=== PATIENT | female | born 1930 | race Caucasian/White ===

== ENCOUNTER 2018-12-03 09:32 | Inpatient (IN) | payer MEDICARE ==
[~2018-12-03] VITALS: Ht 160 cm; Wt 77.1 kg
--- NOTE | ~2018-12-03 | DS ---
[place], [place] DISCHARGE SUMMARY NAME: LORI LOVELL UNIT #: [id number] ROOM: 314 DOCTOR: POLINA QUIÑONEZ MD BIRTHDATE: [birth year] DOS: 12/07/2018 CHIEF COMPLAINT: "I have been just so depressed, I am not happy where I am at." HISTORY OF PRESENT ILLNESS: This is an 88-year-old white female who resides at [facility] independent living. The patient has been increasingly depressed and despondent. She reports that she is not sleeping or eating well and has not been necessarily taking care of her ADLs. She is upset because she could not be with her who resides in another part of the facility. She feels that people are being deliberately mean to her. She is admitted now to rule out organic factors, to stabilize on medication, returning to the least restrictive environment when psychiatrically stable. SUMMARY OF HOSPITAL COURSE: The patient was admitted to the unit where routine screening examinations revealed her to have a low vitamin D level of 26.8, so vitamin D 5000 IUs daily was started. The patient was also started on Remeron 15 mg at bedtime and Risperdal 0.5 mg at bedtime to combat the depression with paranoia. She tolerated this well. Ultimately, the Remeron dose was increased from 15 to 30 mg because she was having some residual somnolence. With this combination of medication, she slept well. Her appetite improved. She expressed willingness and a readiness to return back to her home environment. She convincingly denied suicidal thoughts, homicidal thoughts or any side effects from the medicine. The patient was discharged then back to [facility]. MENTAL STATUS AT DISCHARGE: The patient is alert and oriented with time gaps. Mood does seem to be euthymic. Affect is appropriate. There is no tiburcio, hypomania or psychosis. Short, intermediate, and long-term memory is intact. FINAL DIAGNOSIS: Major depression, recurrent with psychotic features. PLAN: Her prescriptions have been printed, signed and sent with her. We will follow as the treating psychiatric practice upon her readmission to [facility]. At the time of discharge, she was medically and psychiatrically stable. [place], [place] DISCHARGE SUMMARY NAME: LORI LOVELL UNIT #: [id number] ROOM: 314 DOCTOR: POLINA QUIÑONEZ MD BIRTHDATE: [birth year] POLINA QUIÑONEZ MD CM:[place] 0 POLINA QUIÑONEZ MD 12/07/18 09 interface
--- NOTE | ~2018-12-03 | WRIGHTHP ---
[place], [place] PATIENT HISTORY AND PHYSICAL EXAM NAME: LORI LOVELL UNIT #: [id number] ROOM: 314 DOCTOR: POLINA QUIÑONEZ MD BIRTHDATE: [birth year] DOS: 12/04/2018 CHIEF COMPLAINT: "I have just been so depressed, I am not happy where I am at." HISTORY OF PRESENT ILLNESS: This is an 88-year-old white female who resides at [facility]. The patient has been increasingly depressed and despondent. She reports that she is not sleeping or eating well and has not necessarily been taking care of herself. She is upset because she cannot be with her who resides in another part of [facility] and feels that staff there are deliberately mean to her, because of her decompensation, it was felt that an inpatient stabilization was warranted. PAST MEDICAL HISTORY: Remarkable for GERD, glaucoma, osteoarthritis, peripheral vascular disease, and major depression, recurrent. SOCIAL HISTORY: She is a nonsmoker, does not use illicit drugs or drink alcohol. ALLERGIES: SHE LISTS ALLERGIES TO PREDNISONE AND ALBUTEROL. STRENGTHS: Good verbal skills, ambulatory. WEAKNESSES: Poor coping skills. MENTAL STATUS: She is alert and oriented with mild time gaps. Mood is overwhelmingly depressed. She is flat and blunted. She voices multiple neurovegetative symptoms. There is no tiburcio, hypomania. There is some mild paranoia, some of this may be rooted in fact, memory has some gaps. DIAGNOSIS: Major depression, recurrent with psychotic features. PLAN: I have already started her on low dose Risperdal and Remeron. Routine screening examinations reveal a vitamin D level that is low at 26.8, so I will start vitamin D 5000 IUs daily. We will engage in individual and pabon milieu activity, returning to the least restrictive environment when psychiatrically stable. [place], [place] PATIENT HISTORY AND PHYSICAL EXAM NAME: LORI LOVELL UNIT #: [id number] ROOM: 314 DOCTOR: POLINA QUIÑONEZ MD BIRTHDATE: [birth year] POLINA QUIÑONEZ MD CM:HISPHYS:PATIENT HISTORY AND PHYSICAL EXAMINATION 1002 POLINA QUIÑONEZ MD 12/04/18 1009 interface
--- NOTE | ~2018-12-03 | PR ---
[place], [place] PROGRESS NOTE NAME: LORI LOVELL UNIT #: [id number] ROOM: 314 DOCTOR: BELKYS GARCÍA CNP BIRTHDATE: [birth year] DOS: 12/05/2018 CHIEF COMPLAINT: "I would not be here for my son would have just taken me to my home." SUMMARY OF THE VISIT: The patient was interviewed as she sat finishing her breakfast. She did engage readily in conversation with me. The patient reports that she slept well last night and her appetite has been good. She reports that she knows me, but cannot remember my name. I have seen the patient in the past at her assisted living facility in [place]. Staff reports that the patient has been medication compliant; however, she continues to isolate and she can be very demanding of staff at times. MENTAL STATUS EXAMINATION: The patient is alert and oriented to person, place and time. She was pleasant and cooperative with me. No tiburcio or hypomania noted. No delusions or paranoia noted. No psychotic symptoms noted. No auditory or visual hallucinations noted. The patient's mood was calm. Her affect was congruent with mood. No irritability, agitation or aggression noted at this time. PLAN: I will continue the patient's medications as prescribed. We will continue to monitor for effectiveness and side effects. If the patient continues to tolerate Remeron, we will probably plan to increase this to maximize efficacy and we will continue to encourage the patient to engage in individual and pabon milieu activity. Continue fall and safety precautions. Plan is to return the patient to the least restrictive environment when she is considered psychiatrically stable. Belkys García CNP CM:PNTRANS [phone] BELKYS GARCÍA CNP 12/05/18 2351 interface
--- NOTE | ~2018-12-03 | PR ---
[place], [place] PROGRESS NOTE NAME: LORI LOVELL UNIT #: [id number] ROOM: 314 DOCTOR: BELKYS GARCÍA CNP BIRTHDATE: [birth year] DOS: 12/06/2018 CHIEF COMPLAINT: "My back hurts so bad." SUMMARY OF THE VISIT: The patient was interviewed as she lies in her bed in her room. She did engage readily in conversation with me. She reports that she did sleep well last night. She reports that her appetite is good. She denies feeling anxious or irritable. She just reports that she needs something for her back pain that she has scoliosis and that her back always hurts her. Staff reports that the patient has been compliant with her medications. She does continue to be somewhat irritable and she does continue to isolate herself for most of the day in her room. MENTAL STATUS EXAMINATION: The patient is alert and oriented to person, place and time. She was pleasant and cooperative with me. No tiburcio or hypomania noted. No delusions or paranoia noted. No psychotic symptoms noted. No auditory or visual hallucinations noted. The patient's mood was calm. Her affect is congruent with mood. No agitation, aggression or irritability noted at this time. PLAN: I am going to increase the patient's Remeron to 30 mg at bedtime to combat depression symptoms. I will monitor for effectiveness of medication as well as any side effects. At this time, the patient does appear to be tolerating the Remeron 15 mg. I continue to encourage the patient to engage in individual and pabon milieu activity. Continue fall and safety precautions. Plan to return the patient to the least restrictive environment when she is considered psychiatrically stable. Belkys García CNP CM:PNTRANS [phone] BELKYS GARCÍA CNP 12/07/18 0412 interface
[2018-12-03] MEDS ORDERED: ZOLOFT100 MG PO (09:33)
[2018-12-03] MEDS ORDERED: BENGAY GREASELE57 GM T (09:34)
[2018-12-03] MEDS ORDERED: DORZOLAMIDE HYD10 M1 IO (09:35)
[2018-12-03] MEDS ORDERED: LASIX20 MG PO (09:36)
[2018-12-03] MEDS ORDERED: LATANOPROST 0.7.5 ML IO (09:37)
[2018-12-03] MEDS ORDERED: ONE-DAILY MULT1 EAC1 PO (09:37)
[2018-12-03] MEDS ORDERED: PROBIOTIC250 MG PO (09:38)
[2018-12-03] MEDS ORDERED: POTASSIUM CHLO10 MEQ PO (09:38)
[2018-12-03] MEDS ORDERED: VITAMIN B121000 MC1 PO (09:40)
[2018-12-03] MEDS ORDERED: PRESERVISION L1 EACH PO (09:41)
[2018-12-03] MEDS ORDERED: GAS-X EXTRA ST125 M1 PO (09:42)
[2018-12-03] MEDS ORDERED: ADVIL200 M1 PO (09:43)
[2018-12-03] MEDS ORDERED: ALLEGRA-D 24 H1 EACH PO (09:44)
[2018-12-03] MEDS ORDERED: ARTIFICIAL TEAR15 M1 OPH (09:45)
[2018-12-03] MEDS ORDERED: MUCINEX DM 30/61 TAB PO (09:47)
[2018-12-03] MEDS ORDERED: TUMS200 MG PO (09:49)
[2018-12-03 11:32] VITALS: BP 140/57
[2018-12-03 11:49] VITALS: BP 140/57
--- NOTE | 2018-12-03 12:13 | NUR ---
SPOKE WITH DR. GARNETT AT [phone] RE: MEDICAL MANAGEMENT CONSULT NEEDED, PER DR. GONZALEZ CONSULT UNDER HIMSELF.
--- NOTE | 2018-12-03 12:19 | NUR ---
LORI LOVELL a 88 year old F admitted via wheel chair from the [facility] as a voluntary admission. Arrived on unit at 1127 . ALLERGIES: ALBUTEROL AND PREDNISONE Vital signs are: 97.7-93-17 125/86. The client signed the following forms with stated understanding: Authorization For The Release of Medical Information, Clothing List, Consent to Voluntary Admission and Hospitalization, Consent and Release Forms/Receipt of Rights, Acknowledgement of Advance Directive Information, Behavioral Health Consent Form, and Informed Consent of Medications. Admitted under the services of Dr. OLAMIDE JUÁREZ,[facility]. A search was conducted and hazardous articles were removed. Client was oriented to the unit. JATINDER RAPP PT ALERT TO PERSON, PLACE AND TIME. PT CALM, PLEASANT WITH STAFF AND PEERS. NO HALLUCINATIONS OR DELUSIONS NOTED. PT DENIES ANY SUICIDAL THOUGHTS. PT REPORTS USING A ROLLATOR WALKER AT THE A.L., GAIT UNSTEADY, PT UTILIZAING A WHEELCHAIR AT THIS TIME, ORDER PLACED FOR PT/OT EVAL. PT CONTINENT OF BOWEL AND BLADDER.
--- NOTE | 2018-12-03 15:45 | NUR ---
PM GROUP/MOVIE AND CRAFTS PT WAS PRESENT AT THE START OF GROUP AND I HAD NOT HAD A CHANCE TO MEET PT OR ASSESS PT AND SET GOALS. PT WAS ASKED IF SHE WANTED TO JOIN AN ACTIVITY AND STATED, "I ONLY LIKE BINGO" PT SHORTLY ASKED TO BE TAKEN TO HER ROOM TO REST. MENTAL HEALTH WORKER TOOK HER TO HER ROOM
[2018-12-03 20:06] VITALS: BP 135/61
--- NOTE | 2018-12-04 02:22 | NUR ---
24 HR chart check completed.
--- NOTE | 2018-12-04 05:23 | NUR ---
Patient slept approx. 8 hours throughout shift. Q 15 minute safety checks continued and maintained.
[2018-12-04 06:40] LABS: BASO # 0.1 10*3/uL (0.0-0.1); BASO % 1.4 % (0.0-1.0); EOS # 0.3 10*3/uL (0.0-0.4); EOS % 5.3 % (1.0-4.0); HEMATOCRIT 41.3 % (37.0-47.0); HEMOGLOBIN 13.1 g/dl (12.0-16.0); LYMPH # 1.9 10*3/uL (1.3-4.4); LYMPH % 37.6 % (27.0-41.0); MEAN CELL VOLUME 98.3 fl (81.0-99.0); MEAN CORPUSCULAR HGB 31.2 pg (27.0-31.0); MEAN CORPUSCULAR HGB CONC 31.7 g/dl (33.0-37.0); MEAN PLATELET VOLUME 11.7 fl (9.6-12.3); MONO # 0.6 10*3/uL (0.1-1.0); NEUT # 2.1 10*3/uL (2.3-7.9); NEUT % 42.5 % (47.0-73.0); PLATELET COUNT AUTOMATED 131 10*3/uL (130-400); RED CELL DISTRI WIDTH 13.2 % (0-14.5); WHITE BLOOD COUNT 4.9 10*3/uL (4.8-10.8)
[2018-12-04 07:22] LABS: CHLORIDE 114 mmol/L (98-107); POTASSIUM 3.4 mmol/L (3.5-5.1); SODIUM 147 mmol/L (136-145)
[2018-12-04 07:41] LABS: ALBUMIN 3.3 gm/dl (3.1-4.5); ALKALINE PHOSPHATASE 98 U/L (45-117); BUN 14 mg/dl (7-24); CHOLESTEROL 212 mg/dL (<200); CREATININE 0.71 mg/dL (0.55-1.02); HDL CHOLESTEROL 49 mg/dl (40-60); LDL CHOLESTEROL 138 mg/dL (9-159); SGOT/AST 14 IU/L (3-35); SGPT/ALT 13 U/L (12-78); TOTAL PROTEIN 6.4 gm/dL (6.4-8.2); TRIGLYCERIDES 127 mg/dl (<150); VLDL CHOLESTEROL 25 mg/dL (6-40)
[2018-12-04 07:59] LABS: VITAMIN D, 25-HYDROXY 26.8 ng/mL (30-100)
[2018-12-04 08:00] VITALS: BP 143/68
--- NOTE | 2018-12-04 08:30 | NUR ---
Treatment Plan meeting with Dr. Panchal, RN, AT, and Rebeamer. plan for discharge Next week. Pt. came to [facility] from [facility]. Will reach out to facility to discuss discharge Planning.
--- NOTE | 2018-12-04 10:40 | NUR ---
DR. LUNA ON FLOOR TO ASSESS PT, UPDATE PROVIDED.
--- NOTE | 2018-12-04 12:17 | NUR ---
Call placed to Lorene of the [facility] where patient is a resident and will return at discharge. Clinical Updates faxed to Facility.
--- NOTE | 2018-12-04 12:45 | NUR ---
Shift chart check completed.
--- NOTE | 2018-12-04 13:54 | NUR ---
PHYSICAL THERAPY Physical therapy evaluation completed. Full details and evaluation to follow. Low complexity skilled PT evaluation performed (10236). PT will work on strength, transfers, gait, safety, and balance per POC. Recommend return to [facility] independent living upon discharge and receive home health PT services if goals not met.Thank you Mely Jimenez, SPT Nilda Ng,PT,DPT
--- NOTE | 2018-12-04 14:37 | NUR ---
P- ST/LT MEMORY DEFICITS NOTED. MOOD LABILE. ISOLATIVE TO ROOM. I- REORIENT WITH CONFUSION. 1:1 INTERACTION WITH EMOTIONAL SUPPORT AND VENTILATION OF FEELINGS PROVIDED. ENCOURAGE INTERACTION WITH PEERS AND STAFF. ENCOURAGE TO ATTEND/PARTICIPATE IN GORUP THERAPIES FOR EMOTIONAL SUPPORT AND VENTILATION OF FEELINGS. PROVIDE MEDICATIONS ON TIME WITH EDUCATION ON EACH. R- NOTED PT TO FORGET RECENT INFORMATION, REORIENTATION EFFECTIVE. PATIENT BECOMES IRRITABLE QUICKLY AND THEN RETURNS TO BEING PLEASANT. 1:1 INTERACTION SLIGHTLY EFFECTIVE. PATIENT STATES THAT SHE IS JUST TIRED. REFUSE TO ATTEND/PARTICIPATE IN GROUP THERAPIES OR INTERACT WITH PEERS. WILL TALK WITH STAFF WHEN SPEAKING TO PATIENT. MOOD REMAINS LABILE. ALERT AND ORIENTED X3 WITH ST/LT MEMORY DEFICITS. DENIES HALLUCINATIONS, SI/HI, OR PAIN. NO S/S OF INTERACTING WITH INTERNAL STIMULI. NO S/S OF DELUSIONAL THOUGHT PROCESS. NO S/S OF DISTRESS NOTED. RESPS EVEN AND UNLABORED ON ROOM AIR. PATIENT REMAINS ISOLATIVE TO HER ROOM, DOES COME DOWN TO THE DINING ROOM FOR MEALS. MED COMPLIANT. P- REORIENT WITH ST/LT MEMORY DEFICITS. 1:1 INTERACTION WITH EMOTIONAL SUPPORT AND VENTILATION OF FEELINGS PROVIDED WHEN NECESSARY. ENCOURAGE TO ATTEND/PARTICIPATE IN GROUP THERAPIES FOR EMOTIONAL SUPPORT AND INTERACTION. ENCOURAGE INTERACTION WITH PEERS AND STAFF. ASSESS MOOD, ORIENTATION, SI/HI, HALLUCINATIONS, DELUSIONS OR PAIN EVERY SHIFT. FALLING STAR PROGRAM IN PLACE. Q15 MINUTE CHECKS MAINTAINED FOR SAFETY.
--- NOTE | 2018-12-04 15:15 | NUR ---
Occupational Therapy evaluation completed on 3N with full eval to follow. Precautions include fall risk, use of wh walker v.s rollator walker with seat,3N unit precautions, right knee pain, limited ROM right shoulder from fracture 2 yrs prior, low complexity level 77299 via chart review, testing and evaluation. Recomend OT for ADL tx, safety in functional mobility, safety with wh walker per POC and return to independent living with home health OT if goals not met. Thank you. Pattie Sorto OTR/L
--- NOTE | 2018-12-04 15:21 | NUR ---
During assessment, pt stated that she was upset because her son will not take her to her home to gather personal things for her [facility] apartment and that she is upset because she can not eat meals with her who resides in same facility but within a different level of care. Spoke with pt's son and nadia Jimenes and Katelynn Gray. They report that pt was a hoarder and that they have taken pt to her home several times within the 2 years that pt has resided at [facility]. They state that pt's room is full and that the [facility] DON has told them that pt cannot have anything else in her room. Pt's home was infested with mice and squirrels. In regards to eating with pt's , pt has in the past done so but has upset her by trying to force him to eat. Pt has also been behavioral with another resident sitting at her 's table. For these reasons, the DON will not permit pt to eat her meals with pt's . Jalil and Katelynn voiced frustration and shared that pt has had behavioral issues throughout the memories that Jalli has. They believe that pt has struggled with mental health issues but was never diagnosed.
--- NOTE | 2018-12-04 15:32 | NUR ---
PM GROUP PT DID NOT ATTEND AFTERNOON GROUP THERAPY. PT STAYED IN BED NAPPING
[2018-12-04 20:00] VITALS: BP 133/73
--- NOTE | 2018-12-04 22:53 | NUR ---
Patient alert and oriented with ST/LT memory deficits noted. No signs of any hallucinations noted at this time. Patient compliant with medications without any difficulty. Patient isolative to room this evening. Plan to continue to encourage medication compliance and encourage patient to interact with staff and other patients. See [facility] flowsheet for further documentation.
--- NOTE | 2018-12-05 00:47 | NUR ---
24 HR chart check completed.
--- NOTE | 2018-12-05 05:26 | NUR ---
Patient slept approx. 5 hours throughout shift. Q 15 minute safety checks continued and maintained.
[2018-12-05 05:40] LABS: BILIRUBIN NEGATIVE (NEGATIVE); BLOOD NEGATIVE (NEGATIVE); CLARITY CLEAR (CLEAR); COLOR YELLOW (YELLOW); GLUCOSE NEGATIVE (NEGATIVE); KETONE NEGATIVE (NEGATIVE); LEUKO ESTERASE TRACE (NEGATIVE); NITRITE NEGATIVE (NEGATIVE); UROBILINOGEN 0.2 E.U./dl (0.2-1.0)
[2018-12-05 05:50] LABS: RBC 0-2 rbc/hpf (0-2)
--- NOTE | 2018-12-05 06:38 | NUR ---
Medicated with Tylenol po prn for generalized discomfort. Will monitor effectiveness.
[2018-12-05 08:24] VITALS: BP 122/65
--- NOTE | 2018-12-05 10:18 | NUR ---
LUIS WEINER CNP ON UNIT TO ASSESS PATIENT.
--- NOTE | 2018-12-05 11:48 | NUR ---
AM/EXERCISE/BINGO PT ATTENDED AND PARTICIPATED IN ALL GROUP ACTIVITY'S. PT PLEASANT AND ON TASK WITH NO S.I. EXPRESSED AT THIS TIME. PT WILL CONTINUE TO ATTEND AND PARTICIPATE IN FUTURE GROUP SESSIONS.
--- NOTE | 2018-12-05 15:55 | NUR ---
PM/REMINISCE PT ATTENDED AND PARTICIPATED IN GROUP. PT OPEN WITH DISCUSSION AND NO S.I. EXPRESSED AT THIS TIME. PT WILL CONTINUE TO ATTEND AND PARTICIPATE IN FUTRUE GROUP SESSIONS.
--- NOTE | 2018-12-05 16:16 | NUR ---
Shift chart check completed.
--- NOTE | 2018-12-05 17:05 | NUR ---
P: DEPRESSED MOOD, TEARFUL, IRRTABLE I: ONE ON ONE AND REDIRECTION R: EFFECTIVE. PATIENT IS ALERT AND ORIENT TO PERSON, PLACE, TIME AND SITUATION;ABLE TO VOICE NEEDS. MOOD IS DEPRESSED AND SLIGHTLY IRRITABLE AT TIMES. PATIENT WAS TEARFUL THIS AFTERNOON D/T WANTING NAIL CLIPPER AND FILER. PATIENT DENIES ANY HALLUCINATIONS, DELUSIONS, HI/SI OR PAIN. MEDICAITON COMPLAINT. Q 15 MINUTE SAFETY CHECKS MAINTAINED. SET UP FOR ACTIVITIES OF DAILY LIVING, CONTINENT OF BOWEL AND BLADDER. SET UP FOR MEALS, INTAKES ARE GOOD WITH ADEQUATE FLUIDS. AMBULATORY WITH WALKER, STEADY GAIT. PARTICIPATED IN GROUP SESSSIONS AND INTERACTIVE WITH STAFF AND OTHER PATIENTS. P: CONTINUE TO MONITOR MOOD, ATTENDING TO ADL'S, MEDICATION COMPLIANCE, HOARDING OF FOOD AND BEING ISOLATIVE TO SELF; PROVIDE ONE ON ONE AND REDIRECTTION; ENCOURAGE PATIENT TO PARTICIPATE IN GROUP SESSION.
[2018-12-05 19:52] VITALS: BP 146/58
--- NOTE | 2018-12-05 21:43 | NUR ---
NO ADVERSE MOODS OR BEHAVIORS NOTED THIS SHIFT. ALERT AND ORIENTED X3. MOOD STABLE. MEDICATION COMPLIANT WITH EDUCATION PROVIDED ON EACH MED. DENIES HALLUCINATIONS, SI/HI OR PAIN. NO S/S OF INTERACTING WITH INTERNAL STIMULI. NO DELUSIONAL THOUGHT PROCESS NOTED. NO S/S OF DISTRESS NOTED. RESPS EVEN AND UNLABORED ON ROOM AIR. PATIENT REFUSED SNACK, PT STATED THAT SHE WANTED TO GET TO BED EARLY DUE TO HER ROOMMATE GETTING UP ALOT SHE DIDNT FEEL LIKE SHE RESTED WELL LAST NIGHT. PLEASANT WITH INTERACTION. FALLING STAR PROGRAM IN PLACE. Q15 MINUTE SAFETY CHECKS MAINTAINED FOR SAFETY.
--- NOTE | 2018-12-05 23:45 | NUR ---
24 HR chart check completed.
--- NOTE | 2018-12-06 05:52 | NUR ---
PATIENT MONITORED ON Q15 MINUTE SAFETY CHECKS THROUGHOUT THE NIGHT. PT NOTED TO HAVE SLEPT APPROXIMATELY 6 HOURS INTERMITTENTLY.
[2018-12-06 07:48] VITALS: BP 133/65
--- NOTE | 2018-12-06 08:35 | NUR ---
CHRISTEN DESIGN RELEASE ENGINEER ON UNIT TO SEE PT AT THIS TIME. STATES WILL ENTER ORDERS FOR PRN IBUPROFEN.
--- NOTE | 2018-12-06 08:55 | NUR ---
VERBAL ORDER RECIEVED FROM CHRISTEN RAMOS FOR MOTRIN 600MG PO Q8H PRN PAIN. READ BACK AND VERIFIED. CALL PLACED TO PHARMACY TO REQUEST MED BE DELIVERED.
--- NOTE | 2018-12-06 09:20 | NUR ---
PT GIVEN PRN MOTRIN 600MG PO AT THIS TIME PER PT REQUEST FOR C/O BACK PAIN. UPON ASSESSMENT PT STATES PAIN IS LOCATED IN HER LOWER BACK, RIGHT LEG AND RIGHT KNEE, WELL TAILBONE. PT RATES PAIN A 10/10 ON PAIN SCALE. PT BECAME TEARFUL STATES THAT WHEN SHE WAS [age] YEARS OLD SHE BOUNCED DOWN SEVERAL MARBLE STEPS ON THE FIRST DAY OF SCHOOL AND NO ONE WAS THERE TO HELP HER RIGHT AWAY. PT THEN STATES THAT TWO TEACHERS PICKED HER UP AND PUT HER IN THE HARD DESK AND LEFT HER THERE. PT STATES SHE HAS HAD PAIN EVER SINCE THEN. EMOTIONAL SUPPORT PROVIDED. WILL REASSESS PAIN LEVEL FOR EFFECTIVENESS OF MEDICATION INTERVENTION.
--- NOTE | 2018-12-06 10:30 | NUR ---
PT STATES MOTRIN HAS BEEN MODERATELY EFFECTIVE IN REDUCING BACK PAIN. PT NOW RATES PAIN A 6/10 AND STATES "IT'S GETTING BETTER".
--- NOTE | 2018-12-06 14:56 | NUR ---
P- DEPRESSED MOOD, EPISODES OF TEARFULNESS AND IRRITABILITY AT TIMES. I- ORIENTATION, MOOD AND BEHAVIOR ASSESSED. ASSESSED PT FOR SI/HI, INTENT OR PLAN. ASSESSED PT FOR S/S HALLUCINATIONS, PARANOIA AND/OR DELUSIONS. MEDICATIONS ADMINISTERED PER PHYSICIAN'S ORDERS. ASSISTANCE WITH ADL CARE PROVIDED NEEDED. ENCOURAGED PT TO ATTEND AND PARTICIPATE IN CROCKER MILIEU GROUPS AND ACTIVITIES. R- PT IS ALERT AND ORIENTED X3. MILD MEMORY GAPS NOTED. RESPS EASY AND EVEN ON ROOM AIR. MOOD APPEARS DEPRESSED, FLAT AFFECT. PT WITH EPISODES OF TEARFULNESS AND IRRITABILITY AT TIMES. PT BECAME TEARFUL THIS AM TALKING ABOUT FALLING DOWN THE STEPS A CHILD AT SCHOOL AND BECAME INCREASINGLY IRRITABLE AROUND LUNCH TIME DUE TO PIZZA BEING OVERCOOKED. STAFF ATTEMPTED TO ORDER NEW LUNCH FOR PT, PT ADAMANTLY REFUSED SEVERAL TIMES. PT DENIES SI/HI, INTENT OR PLAN. PT DENIES HALLUCINATIONS, NO RESPONSE TO INTERNAL STIMULI NOTED. NO PARANOIA OR DELUSIONS NOTED. PT IS MEDICATION COMPLIANT WITHOUT DIFFICULTY. PT SLIGHTLY LESS ISOLATIVE THIS AM, REMAINED IN DINING ROOM SITTING AT A TABLE INTERACTING WITH FEMALE PEERS FROM BREAKFAST UNTIL AFTER LUNCH. PT THEN RETURNED TO ROOM TO LAY DOWN IN THE AFTERNOON. NO DISTRESS NOTED. P- PLAN TO CONTINUE CURRENT TREATMENT, CONTINUE TO MONITOR MOOD AND BEHAVIORS. PROVIDE APPROPRIATE REORIENTATION, REDIRECTION AND 1:1 NEEDED. CONTINUE TO ENCOURAGE MEDICATION COMPLIANCE WELL GROUP ATTENDANCE AND PARTICIPATION.
--- NOTE | 2018-12-06 18:50 | NUR ---
SHIFT CHART CHECK COMPLETED.
[2018-12-06 19:48] VITALS: BP 135/59
--- NOTE | 2018-12-06 23:50 | NUR ---
P: ISOLATIVE, WITHDRAWN, I: ENCOURAGE PEER INTERACTION AND INTERACTION WITH STAFF, 1:1 OFFER SNACKS, DISTRACTIONS, T.V, GROUPS, MEDICATION EDUCATION. R: PT IN LOUNGE FOR DINNER AND SNACK, INTERACTIVE WITH OTHER FEMALE PEERS, WITH AWARENESS OF OTHERS SURROUNDING HER. PT ALSO CONCERNED ABOUT HER PEERS NEEDS AND WANTS, EASILY REDIRECTED. P: CONTINUE TO ENCOURAGE COMPLIANCE AND EDUCATION WITH MEDICATION, REDIRECT NEEDED, ENCOURAG ENTERACTION WITH PEERS AND STAFF. NO SI/HI OR DELUSIONS NOTED, CONTINUE 15 MIN CHECKS AT THIS TIME.
--- NOTE | 2018-12-07 07:10 | NUR ---
PHYSICAL THERAPY Patient seen this am for therapy visit and was just awakening in bed upon therapist arrival. OT office assistant receptionist was present for observation only during WASHING MACHINE LOADER AND PULLER visit as patient reports chronic c/o of B knee stiffness. Patient transfers supine to sit EOB SBA, taking a few minutes to collect herself, followed by sit to stand transfer SBA x 1. Patient ambulates with use of wh walker, 75'x 1, SBA, demonstrating very slow wagner, decreased stride and needed v/c to improve walker safety / navigation, secondary to over reaching of arms, contributing to "slouched" upright posture. Patient returned to activity room in her w/c and remained at table under [facility] staff Supervision. Will continue per POC as tolerated, total treatment time 16 minutes. Carlos Neff, WASHING MACHINE LOADER AND PULLER
--- NOTE | 2018-12-07 07:39 | NUR ---
OT NOTE Pt was seen this A.M. 1:1 for 30 minute OT session with PLASTICS NURSE and nursing staff present for observation only. Upon arrival pt was supine in bed. Pt identified by name and and had no complaints at this time. Pt transferred supine to sit EOB with SBA. While sitting EOB pt donned B socks IA while seated. Pt then donned under pants and pants while seated up to her knees and then stood while donning over hips with supervision. Pt then donned shirt IA while seated. Sit to stand completed from bed level with supervision and functional mobility completed into the bathroom with SBA and use of w/w for UE support. Pt transferred on/off standard commode with supervision. Clothing management and toilet hygiene completed with supervision. Pt then stood sink side while washing her hands, face, and completing hair care with SBA. Pt was left sitting upright in the dining room in her w/c under [email or web address] staff supervision. Continue with POC as able. MERE Little/Alessandra
[2018-12-07 07:50] VITALS: BP 128/84
--- NOTE | 2018-12-07 08:30 | NUR ---
Treatment Plan meeting with Dr. Panchal, RN, AT, and Hospice Nurse. Plan for discharge today. Pt. will return to [facility]. Call placed to Family [facility] Facility and notified of Discharge. Spoke with Nurse Perze at [facility]. Call placed to [facility] who will transport patient with pick pulling machine tender time 11:45
[2018-12-07] MEDS ORDERED: RISPERIDONE0.5 MG PO (08:31)
[2018-12-07] MEDS ORDERED: MIRTAZAPINE30 M2 PO (08:31)
--- NOTE | 2018-12-07 09:04 | NUR ---
LUIS WEINER UPDATED ON PT DISCHARGE TODAY
--- NOTE | 2018-12-07 09:30 | NUR ---
LUIS WEINER ON UNIT TO ASSESS PT. UPDATE PROVIDED TO
[2018-12-07] MEDS ORDERED: MOTRIN 600 MG E4 TAB PO (10:26)
--- NOTE | 2018-12-07 10:57 | NUR ---
Discharge Paperwork Faxed to Lorene of the [facility].
--- NOTE | 2018-12-07 11:44 | NUR ---
PT OFF UNIT TO BE TRANSPORTED BACK TO [facility]
--- NOTE | 2018-12-07 12:00 | NUR ---
AM GROUP/EXERCISE AND BRAIN GAMES PT ATTENDED AND PARTICIPATED IN ALL GROUP ACTIVITIES. PT EXPRESSED NO S.I. WHILE IN GROUP. PT HAS BEEN DISCHARGED FROM THE UNIT
--- NOTE | 2018-12-07 15:00 | NUR ---
Pt discharged today to [facility]. Follow-up will be with Dr Panchal, visiting psychiatrist. While at [facility], pt did not display inappropriate behaviors. She participated in programming.
--- NOTE | 2018-12-07 15:39 | NUR ---
PHYSICAL THERAPY CO-SIGN I approve of the Physical Therapy notes written above. MONICA CONTRERAS PT,DPT
--- NOTE | 2018-12-08 08:39 | NUR ---
OCCUPATIONAL THERAPY CO-SIGN I approve of the Occupational Therapy notes written above. GABRIELLE LIRIANO OTR/Alessandra
== END 2018-12-07 11:45 | disposition home or self-care (01) | DRG 885 ==
LOC: 3N 09:32
PROVIDERS: ADMIT Psychiatry & Neurology Psychiatry
DX: F33.3 Major depressive disorder, recurrent, severe with psychotic symptoms (principal); K21.9 Gastro-esophageal reflux disease without esophagitis; M17.0 Bilateral primary osteoarthritis of knee; F41.9 Anxiety disorder, unspecified; M19.041 Primary osteoarthritis, right hand; F48.2 Pseudobulbar affect; D32.9 Benign neoplasm of meninges, unspecified; I73.9 Peripheral vascular disease, unspecified; Z88.8 Allergy status to other drugs, medicaments and biological substances